=== PATIENT | female | born 1965 | race Caucasian/White ===

== ENCOUNTER → 2018-02-15 | Outpatient (CLI) | payer OTHER | LOC: MC.RAD 11:24 | DX: Z12.31 Encounter for screening mammogram for malignant neoplasm of breast (principal); N63.20 Unspecified lump in the left breast, unspecified quadrant ==

== ENCOUNTER → 2018-03-07 | Outpatient (CLI) | payer OTHER | LOC: MC.RAD 08:58 | DX: N64.89 Other specified disorders of breast (principal); N63.20 Unspecified lump in the left breast, unspecified quadrant | CPT/HCPCS: G0279 ==

== ENCOUNTER 2020-01-24 11:30 | Observation (INO) | payer OTHER ==
[~2020-01-24] VITALS: Ht 162.6 cm; Wt 125.6 kg
[2020-01-24 12:01] LABS: HEMATOCRIT 45.2 % (37.0-47.0); HEMOGLOBIN 14.5 g/dl (12.5-16.0); MEAN CELL VOLUME 84 fl (80.0-100.0); MEAN CORPUSCULAR HEMOGLOBIN 27 pg (27.0-31.0); MEAN CORPUSCULAR HGB CONC 32 g/dl (33.0-37.0); MEAN PLATELET VOLUME 8.9 fl (7.4-10.4); PLATELET COUNT 482 K/mm3 (130-400); RED BLOOD COUNT 5.37 M/mm3 (4.10-5.30); REDCELL DISTRIBUTION WIDTH-CV 14.9 % (11.5-14.5)
[2020-01-24 12:03] LABS: INR 0.9 (0.8-3.0); PROTHROMBIN TIME 10.5 SECONDS (9.7-12.8)
[2020-01-24 12:10] LABS: ALANINE AMINOTRANSFERASE 21 U/L (4-34); ALBUMIN 4.5 gm/dL (3.5-5.0); ALKALINE PHOSPHATASE 101 U/L (50-136); ANION GAP 11 mmol/L (7-16); AST,SGOT 21 U/L (15-37); BILIRUBIN,TOTAL 0.6 mg/dL (0.0-1.0); BLOOD UREA NITROGEN 11 mg/dL (7-17); CALCIUM 9.7 mg/dL (8.4-10.2); CARBON DIOXIDE 25 mmol/L (22-30); CHLORIDE 98 mmol/L (98-107); CREATININE, serum 0.45 (0.52-1.25); GLUCOSE 266 mg/dL (74-106); LIPASE 51 U/L (23-300); POTASSIUM 4.5 mmol/L (3.4-5.0); SODIUM 133 mmol/L (137-145); TOTAL PROTEIN 7.7 gm/dL (6.4-8.2)
[2020-01-24 12:19] LABS: D-DIMER < 200.00 ng/mLDDu (200-230)
[2020-01-24 12:35] LABS: TROPONIN-I < 0.012 ng/mL (0.000-0.035)
[2020-01-24 12:41] LABS: BAND 1 % (0-10); EOSINOPHIL 1 % (0-4); LYMPHOCYTE 19 % (20.0-51.0); MYELOCYTE 3 % (0-0); NEUTROPHILS 74 % (42.0-75.2); PLATELET ESTIMATE INCREASED (NORMAL)
[2020-01-24 12:42] LABS: ANISOCYTOSIS 1+
[2020-01-24] MEDS ORDERED: LATUDA60 MG PO (15:11)
[2020-01-24] MEDS ORDERED: EFFEXOR-XR150 MG PO (15:12)
[2020-01-24] MEDS ORDERED: LITHIUM 30300 MG/CAP PO (15:12)
[2020-01-24] MEDS ORDERED: WELLBUTRIN XL150 MG PO (15:12)
[2020-01-24] MEDS ORDERED: JANUVIA 100MG100 MG PO (15:13)
[2020-01-24] MEDS ORDERED: LITHIUM 60600 MG/CAP PO (15:13)
[2020-01-24] MEDS ORDERED: LEVEMIR FLEX100 U/ML SQ (15:14)
[2020-01-24] MEDS ORDERED: GLUCOPHAGE1000 MG PO (15:14)
[2020-01-24] MEDS ORDERED: PRINIVIL20 MG PO (15:15)
[2020-01-24 17:42] VITALS: BP 124/68; PULSE 110; TEMP 98.8
--- NOTE | 2020-01-24 19:05 | NUR ---
Pt arrived to floor, resting in bed, taking PO well, discussed lexiscan tomorrow. denies needs, will continue to monitor.
--- NOTE | 2020-01-24 19:05 | NUR ---
Bedside shift report given to Sonja Daigle who will resume care. Pt resting in bed, denies any pain, nightshift to resume care.
[2020-01-24 20:22] VITALS: BP 110/68; PULSE 58; TEMP 99.2
--- NOTE | 2020-01-24 20:48 | NUR ---
Pt. sitting up in bed at this time. Pt. is A&OX3, assessment complete. INT to lt. hand patent. Pt. denies pain or other needs, call light within reach.
[2020-01-25] VITALS (8 sets, daily range): BP systolic 107–146; BP diastolic 65–83; PULSE 90–119; TEMP 98.3–98.4
[2020-01-25 07:36] LABS: HEMATOCRIT 43.1 % (37.0-47.0); HEMOGLOBIN 13.6 g/dl (12.5-16.0); MEAN CELL VOLUME 84 fl (80.0-100.0); MEAN CORPUSCULAR HEMOGLOBIN 27 pg (27.0-31.0); MEAN CORPUSCULAR HGB CONC 32 g/dl (33.0-37.0); PLATELET COUNT 454 K/mm3 (130-400); RED BLOOD COUNT 5.11 M/mm3 (4.10-5.30); REDCELL DISTRIBUTION WIDTH-CV 15.1 % (11.5-14.5)
[2020-01-25 07:55] LABS: ANION GAP 8 mmol/L (7-16); BLOOD UREA NITROGEN 10 mg/dL (7-17); CALCIUM 8.7 mg/dL (8.4-10.2); CARBON DIOXIDE 26 mmol/L (22-30); CHLORIDE 101 mmol/L (98-107); CHOLESTEROL 179 mg/dL (120-200); CHOLESTEROL RISK RATIO 4.4; CREATININE, serum 0.49 (0.52-1.25); GLUCOSE 263 mg/dL (74-106); HDL CHOLESTEROL 40 mg/dL; LDL CHOLESTEROL 95 mg/dL; POTASSIUM 4.4 mmol/L (3.4-5.0); SODIUM 135 mmol/L (137-145); TRIGLYCERIDE 220 mg/dL
[2020-01-25 08:08] LABS: TROPONIN-I < 0.012 ng/mL (0.000-0.035)
[2020-01-25 08:18] LABS: BAND 2 % (0-10); EOSINOPHIL 3 % (0-4); LYMPHOCYTE 22 % (20.0-51.0); NEUTROPHILS 70 % (42.0-75.2); PLATELET ESTIMATE NORMAL (NORMAL)
--- NOTE | 2020-01-25 08:42 | NUR ---
Pt down for lola at this time.
--- NOTE | 2020-01-25 12:16 | NUR ---
First visit from the director medical writing. No needs right now.
--- NOTE | 2020-01-25 13:39 | NUR ---
Pt assessment completed and charted, medications administered per jul. Dr. Gomes called w/ update, pt ok to eat, diet ordered. Pt A&O, independent in room, on room air, breathing is even and unlabored. Pt denies any chest pain, N/V/D, abdominal pain, numbness or tingling. BS active X4. LS cta, heart RRR, pulses strong bilaterally. Sliding scale insulin administered per jul. LH INT IV flushes w/o difficulty. No further needs expressed.
[2020-01-25] MEDS ORDERED: NOVOLOG FLEX100 U/ML SQ (14:34)
--- NOTE | 2020-01-25 16:37 | NUR ---
Discharge instructions discussed and reviewed w/ patient who verbalized understanding, all questions answered. LH INT IV dc'd w/ catheter tip intact, no further needs. Awaiting to arrive for pick remover.
== END 2020-01-25 17:19 | disposition home or self-care (01) ==
LOC: COL.ER 11:30 → MEDICAL 14:23
PROVIDERS: Emergency Medicine; ADMIT Hospitalist
DX: R07.89 Other chest pain (principal); I10 Essential (primary) hypertension; E11.9 Type 2 diabetes mellitus without complications; Z79.4 Long term (current) use of insulin; F31.9 Bipolar disorder, unspecified; D72.828 Other elevated white blood cell count; D47.3 Essential (hemorrhagic) thrombocythemia; E66.01 Morbid (severe) obesity due to excess calories; Z68.42 Body mass index [BMI] 45.0-49.9, adult; R51 Headache; R01.1 Cardiac murmur, unspecified; Z79.899 Other long term (current) drug therapy; Z88.0 Allergy status to penicillin; Z88.2 Allergy status to sulfonamides; Z90.711 Acquired absence of uterus with remaining cervical stump; Z90.49 Acquired absence of other specified parts of digestive tract; Z82.49 Family history of ischemic heart disease and other diseases of the circulatory system
CPT/HCPCS: A9500; C9113; J1815; J2785; J7030